=== PATIENT | female | born 1960 | race African-American/Black ===

== ENCOUNTER → 2017-06-04 | Outpatient (CLI) | payer OTHER ==
[~2017-06-04] MED LIST: MULTI VITAMINS1 TAB PO; NO HOME MEDICATIONS; NORCO 325 MG-7.1 TAB PO
== END ==
LOC: MC.RAD 08:48
DX: Z12.31 Encounter for screening mammogram for malignant neoplasm of breast (principal)

== ENCOUNTER → 2018-12-01 | Outpatient (CLI) | payer OTHER | LOC: MC.RAD 07:20 | DX: Z12.31 Encounter for screening mammogram for malignant neoplasm of breast (principal) ==

== ENCOUNTER → 2019-12-17 | Outpatient (CLI) | payer OTHER | LOC: COL.RAD 08:09 | DX: R10.2 Pelvic and perineal pain (principal) | CPT/HCPCS: Q9967 ==

== ENCOUNTER → 2019-12-22 | Outpatient (CLI) | payer OTHER | LOC: MC.RAD 08:36 | DX: Z12.31 Encounter for screening mammogram for malignant neoplasm of breast (principal); N63.20 Unspecified lump in the left breast, unspecified quadrant ==

== ENCOUNTER → 2021-02-23 | Outpatient (CLI) | payer OTHER | LOC: MC.RAD 08:00 | DX: Z12.31 Encounter for screening mammogram for malignant neoplasm of breast (principal) ==

== ENCOUNTER 2023-11-27 15:03 | Emergency (ER) | payer BC ==
[~2023-11-27] VITALS: Ht 165.1 cm; Wt 99.2 kg
[2023-11-27 15:16] VITALS: TEMP 98.8
[2023-11-27 16:23] LABS: BASO % 0.7 % (0.0-2.0); EOS # 0.1 K/mm3 (0.0-0.7); EOS % 0.8 % (0.0-4.0); GRAN # 3.9 K/mm3 (1.4-6.5); GRAN % 65.3 % (42.2-75.2); HEMATOCRIT 38.3 % (37.0-47.0); HEMOGLOBIN 13.2 g/dl (12.5-16.0); LYMPH # 1.5 K/mm3 (1.2-3.4); LYMPH % 25.3 % (20.0-51.0); MEAN CELL VOLUME 73 fl (80.0-100.0); MEAN CORPUSCULAR HEMOGLOBIN 25 pg (27-31); MEAN CORPUSCULAR HGB CONC 35 g/dl (33.0-37.0); MEAN PLATELET VOLUME 11.6 fl (7.4-10.4); MONO # 0.5 K/mm3 (0.1-0.6); MONO % 7.7 % (1.7-9.3); PLATELET COUNT 205 K/mm3 (130-400); RED BLOOD COUNT 5.25 M/mm3 (4.10-5.30); REDCELL DISTRIBUTION WIDTH-CV 14.1 % (11.5-14.5)
[2023-11-27 16:45] LABS: ALBUMIN 4.5 gm/dL (3.4-4.8); BILIRUBIN,TOTAL 0.8 mg/dL (0.2-1.2); CALCIUM 11.5 mg/dL (8.4-10.2); CREATININE, serum 1.01 mg/dL (0.57-1.11); POTASSIUM 3.5 mmol/L (3.5-4.5); TOTAL PROTEIN 7.4 gm/dL (6.2-8.1)
[2023-11-27 19:09] VITALS: BP 117/88; PULSE 71
[2023-11-28] MEDS ORDERED: LIPITOR 40MG TA40 MG PO (12:38)
[2023-11-28] MEDS ORDERED: ASPIRIN E.C. 8181 MG PO (13:11)
[2023-11-28] MEDS ORDERED: PEPCID 20MG TAB20 MG PO (13:12)
[2023-11-28] MEDS ORDERED: MULTI VITAMINS1 TAB PO (13:12)
[2023-11-28] MEDS ORDERED: THERAFLU FLU &1 PD1 (13:15)
[2023-11-28] MEDS ORDERED: MYLANTA MAXIMU355 M1 PO (13:18)
== END 2023-11-27 19:09 | disposition home or self-care (01) ==
LOC: COL.ER 15:03
PROVIDERS: Emergency Medicine
DX: R13.10 Dysphagia, unspecified (principal); Z90.89 Acquired absence of other organs
CPT/HCPCS: Q9967

== ENCOUNTER 2023-11-28 11:56 | Day surgery (SDC) | payer BC ==
[~2023-11-28] VITALS: Ht 166.4 cm; Wt 98.3 kg
[2023-11-28] MEDS ORDERED: LIPITOR 40MG TA40 MG PO (12:38)
[2023-11-28 13:01] VITALS: BP 167/101; PULSE 103; TEMP 97.3
[2023-11-28] MEDS ORDERED: ASPIRIN E.C. 8181 MG PO (13:11)
[2023-11-28] MEDS ORDERED: MULTI VITAMINS1 TAB PO (13:12)
[2023-11-28] MEDS ORDERED: PEPCID 20MG TAB20 MG PO (13:12)
[2023-11-28] MEDS ORDERED: THERAFLU FLU &1 PD1 (13:15)
[2023-11-28] MEDS ORDERED: MYLANTA MAXIMU355 M1 PO (13:18)
[2023-11-28 13:30] VITALS: BP 122/87; PULSE 78; TEMP 97.4
[2023-11-28 13:45] VITALS: BP 130/85; PULSE 72
[2023-11-28 14:00] VITALS: BP 149/92; PULSE 80
[2023-11-28 14:15] VITALS: BP 140/85; PULSE 72
--- NOTE | 2023-11-28 14:40 | NUR ---
1330 RETURNS TO ROOM 4 PER CART. AWAKE, ALERT. RESP UNLABORED. DENIES ABD/CHEST PAIN. VITAL SIGNS OBTAINED. CALL LIGHT AT SIDE. IN ROOM. 1345 AWAKE, ALERT. CONVERSES WITH 1350 DR. HERNANDEZ HERE TO VISIT WITH PATIENT AND 1405 TOLER[place] PO WATER. SWALLOWS WATER OKAY 1415 DISCHARGE INSTRUCTIONS REVIEWED. PATIENT VERBALIZES UNDERSTANDING. COPY PROVIDED IN DISCHARGE FOLDER 1430 PATIENT DRESSES SELF
== END 2023-11-28 14:43 | disposition home or self-care (01) ==
LOC: SDCO 11:56
DX: K29.80 Duodenitis without bleeding (principal); K29.50 Unspecified chronic gastritis without bleeding; K22.4 Dyskinesia of esophagus; R13.12 Dysphagia, oropharyngeal phase
CPT/HCPCS: J2704; J7120

== ENCOUNTER → 2023-11-29 | Outpatient (CLI) | payer BC ==
[~2023-11-29] MED LIST changes: +ASPIRIN E.C. 8181 MG PO; +LIPITOR 40MG TA40 MG PO; +MYLANTA MAXIMU355 M1 PO; +PEPCID 20MG TAB20 MG PO; +THERAFLU FLU &1 PD1
== END ==
LOC: COL.RAD 10:51
DX: R13.10 Dysphagia, unspecified (principal)

== ENCOUNTER 2023-12-09 10:00 | Outpatient (RCR) | payer BC | END 2023-12-25 | disposition home or self-care (01) | LOC: WSST | DX: R13.10 Dysphagia, unspecified (principal) ==

== ENCOUNTER → 2023-12-09 | Outpatient (CLI) | payer BC | LOC: COL.RAD 09:55 | DX: R13.10 Dysphagia, unspecified (principal) ==

== ENCOUNTER → 2024-08-18 | Outpatient (CLI) | payer BC | LOC: MC.RAD 11:01 | DX: Z12.31 Encounter for screening mammogram for malignant neoplasm of breast (principal) ==